=== PATIENT | male | born 1930 | race Caucasian/White ===

== ENCOUNTER → 2016-05-24 | Outpatient (CLI) | payer MEDICARE, OTHER ==
[2016-04-01 14:41] VITALS: BP 161/84
[~2016-05-24] MED LIST: ASPI-482 PO; MULT-496 PO; blood pressure pill
--- NOTE | 2016-05-24 13:46 | KCIC ---
PROCEDURE KUB HISTORY Recently-passed stone, right lower quadrant pain, history of renal stone COMPARISON CT April 27, 2016 of the abdomen pelvis, no previous radiographs available. FINDINGS There are multiple phleboliths in the bilateral pelvis. There are a couple of adjacent calcifications in the right pelvis although these are apparently outside the ureter as seen on CT. No definitive calcification is seen in the expected course of the right ureter. IMPRESSION 1. No definitive calculus is identified by radiograph in the expected course of the right ureter, multiple phleboliths in the bilateral pelvis. Electronically signed by: Dimas Orozco MD (May 24, 2016 13:45:26)
== END | disposition home or self-care (01) ==
LOC: KCIC 12:59
PROVIDERS: ATTEND Urology
DX: R10.31 Right lower quadrant pain (principal); Z87.442 Personal history of urinary calculi
CPT/HCPCS: 74000

== ENCOUNTER → 2018-06-13 | Outpatient (CLI) | payer OTHER ==
[2016-04-01 14:41] VITALS: BP 161/84
--- NOTE | 2018-07-30 10:36 | RAD ---
3 view left knee 06/13/2018 CLINICAL INDICATION: Left knee pain with no known injury. COMPARISON: None. FINDINGS: No acute fracture or traumatic malalignment. No significant knee joint effusion. Severe medial compartment joint space narrowing of the left knee with [id number] contact and mild osteophytosis. Minimal patellofemoral osteophytic spurring. Degenerative varus deformity of the left knee. Vascular calcifications posterior to the left knee. There is mild joint space narrowing of the medial lateral joint compartment right knee on the AP view. 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 Electronically signed by: Rachel Tovar MD (06/13/2018 4:43 PM) [facility] DICTATED and SIGNED BY: RACHEL TOVAR MD DATE: 06/13/18 1638 MTDD
== END | disposition home or self-care (01) ==
LOC: PMGORTHO 14:56
PROVIDERS: ATTEND Orthopaedic Surgery
DX: M17.12 Unilateral primary osteoarthritis, left knee (principal); M21.162 Varus deformity, not elsewhere classified, left knee
CPT/HCPCS: 73562